=== PATIENT | female | born 1950 | race Caucasian/White ===

== ENCOUNTER → 2022-02-09 | Outpatient (CLI) | payer MEDICARE ==
[2022-02-09 13:50] VITALS: BP 157/66; PULSE 96; TEMP 99.2; BMI 28.5
--- NOTE | 2022-05-05 12:37 | P.HPBAR ---
Bariatric H&P - History & Physicial H&P Date: 02/09/22 History & Physicial: Visit/CC: lap band f/u Patient initial contact: Initial weight: Initial weight in pounds: Height: 5 ft 3 in Initial BMI: Last weight: Current weight: 73.028 kg Current weight in pounds: 161.00 Current BMI: 28.5 [place] body weight (based on NIH guidelines): 52.163 kg Excess body weight loss: The patient is a 71 year-old F who presents for Bariatric Assessment. Patient resents today for LAP-BAND follow-up. She has complaints of GERD. He is requesting a band to be loosened. Past Medical History Past Medical History: Asthma, Coronary Artery Disease (CAD), Hyperlipidemia, Myocardial Infarction ([place]), Osteoarthritis (OA) Last Myocardial Infarction Date:: 2002 History of Any Multi-Drug Resistant Organisms: None Reported Past Surgical History: Bariatric Surgery, Breast Surgery, Section, Cholecystectomy, Heart Catheterization With Stent, Hernia Repair Additional Past Surgical History / Comment(s): lap band 2001, 10 cardiac stents Past Anesthesia/Blood Transfusion Reactions: No Reported Reaction Date of Last Stent Placement:: 2015 Smoking Status: Current every day smoker Surgical - Exam Vital Signs Temp Pulse BP 99.2 F 96 157/66 02/09/22 13:47 02/09/22 13:47 02/09/22 13:47 - General well nourished - Eyes PERRL - ENT normal pinna - Neck no masses - Respiratory normal expansion - Cardiovascular Rhythm: regular - Abdomen Abdomen: soft, non tender Bariatric Assessment & Plan Plan: GERD. Patient's LAP-BAND had 2 mL removed. She currently has 8 mL in the band. She'll follow-up in 4 weeks. Bariatric Checklist Checklist: Plan: Checklist: EGD: 1. Hiatal hernia: 2. H. Pylori: HgbA1c: Vitamin D: Smoking: Primary care physician referral: Psychiatry clearance: Cardiology clearance: Sleep study: Diet journal: VTE risk score: VTE risk level: Rehab needs at discharge:
== END | disposition home or self-care (01) ==
LOC: BARWHC3 13:22
PROVIDERS: ATTEND Surgery
DX: Z46.51 Encounter for fitting and adjustment of gastric lap band (principal); F17.200 Nicotine dependence, unspecified, uncomplicated; I25.10 Atherosclerotic heart disease of native coronary artery without angina pectoris; J45.909 Unspecified asthma, uncomplicated; E78.5 Hyperlipidemia, unspecified; I25.2 Old myocardial infarction; M19.90 Unspecified osteoarthritis, unspecified site; Z98.84 Bariatric surgery status; Z88.8 Allergy status to other drugs, medicaments and biological substances; Z88.1 Allergy status to other antibiotic agents
CPT/HCPCS: 99213

== ENCOUNTER → 2022-03-05 | Day surgery (SDC) | payer MEDICARE ==
[2022-03-04 10:02] VITALS: BMI 28.3
[~2022-03-05] MED LIST: LACTATED RINGERS 1,000 ML IV SCH; LIDOCAINE 1% (10MG/ML) FOR IV START INTRADERMA ONE; PROPOFOL 10 MG/ML 20 ML VIAL IV ONE
[2022-03-05 12:14] VITALS: RESP 16; TEMP 97
--- NOTE | 2022-03-05 12:40 | P.GSHP ---
History of Present Illness H&P Date: 03/05/22 Chief Complaint: GERD 71-year-old female been safe for EGD. She's had issues with GERD. She has appears history of bariatric surgery. Past Medical History Past Medical History: Asthma, Coronary Artery Disease (CAD), Hyperlipidemia, M yocardial Infarction ([place]), Osteoarthritis (OA) Last Myocardial Infarction Date:: 2002 History of Any Multi-Drug Resistant Organisms: None Reported Past Surgical History: Bariatric Surgery, Breast Surgery, Section, Cholecystectomy, Heart Catheterization With Stent, Hernia Repair Additional Past Surgical History / Comment(s): lap band 2001, cardiac stents, COLONOSCOPY/EGD Past Anesthesia/Blood Transfusion Reactions: No Reported Reaction Date of Last Stent Placement:: 2015 Smoking Status: Current every day smoker - Past Family History Brother(s) Family Medical History: Deep Vein Thrombosis (DVT) Sister(s) Family Medical History: Cancer Medications and Allergies Home Medications Medication Instructions Recorded Confirmed Type Albuterol Inhaler [Ventolin Hfa 1 puff INHALATION RT-QID PRN 02/09/22 03/04/22 History Inhaler] Aspirin 325 mg PO DAILY 02/09/22 03/04/22 History Cholecalciferol [Vitamin D3 (10 10 mcg PO DAILY 02/09/22 03/04/22 History Mcg = 400 Iu)] Clopidogrel [Plavix] 75 mg PO DAILY 02/09/22 03/04/22 History Esomeprazole Magnesium [NexIUM] 20 mg PO DAILY PRN 02/09/22 03/04/22 History Ezetimibe [Zetia] 10 mg PO DAILY 02/09/22 03/04/22 History Fluticasone/Vilanterol [Breo 1 inhalation PO Q24HR 02/09/22 03/04/22 History Ellipta 100-25 Mcg Inhaler] Fluvastatin Sodium [Fluvastatin ER] 80 mg PO DAILY 02/09/22 03/04/22 History Folic Acid 1 mg PO DAILY 02/09/22 03/04/22 History Iron 18 mg PO DAILY 02/09/22 03/04/22 History Mometasone Furoate [Nasonex 50 mcg 1 - 2 spray EA NOSTRIL DAILY PRN 02/09/22 03/04/22 History Nasal [place]] Mometasone/Formoterol [Dulera 100 1 puff PO BID PRN 02/09/22 03/04/22 History Mcg-5 Mcg Inhaler] Multivitamins, Thera [Multivitamin 1 tab PO DAILY 02/09/22 03/04/22 History (formulary)] Sertraline [Zoloft] 50 mg PO DAILY 02/09/22 03/04/22 History polyethylene glycoL 3350 [Miralax] 17 gm PO DAILY 02/09/22 03/04/22 History traMADol HCL [Ultram] 50 mg PO TID 02/09/22 03/04/22 History Allergies Allergy/AdvReac Type Severity Reaction Status Date / Time bupropion [From Wellbutrin] Allergy VERY HYPER Verified 03/05/22 11:58 ciprofloxacin [From Cipro] Allergy Rash/Hives Verified 03/05/22 11:58 niacin Allergy Itching Verified 03/05/22 12:00 Surgical - Exam Vital Signs Temp Pulse Resp BP Pulse Ox 97.0 F L 75 16 119/74 98 03/05/22 12:12 03/05/22 12:12 03/05/22 12:12 03/05/22 12:12 03/05/22 12:12 - General well developed, well nourished, no distress - Eyes PERRL - ENT normal pinna - Neck no masses - Respiratory normal expansion - Cardiovascular Rhythm: regular - Abdomen Abdomen: soft, non tender Assessment and Plan Assessment: GERD. We'll perform EGD.
--- NOTE | 2022-03-05 12:48 | P.OP ---
Date of Procedure: 03/05/22 Preoperative Diagnosis: GERD Postoperative Diagnosis: Antral gastritis Proximal stomach inflammation of her band Procedure(s) Performed: EGD Anesthesia: MAC Surgeon: Blake Bauer Pathology: other (Antrum, proximal stomach) Condition: stable Disposition: PACU Description of Procedure: The patient's placed on the endoscopy table in the lateral position. She received IV sedation. The gastroscope placed oropharynx passed in the esophagus and stomach. Scope was then placed through the pylorus. First and second portion of duodenum appeared normal. Scope was then brought back the antrum was mildly inflamed. A biopsies performed. The scope was then retroflexed and was unclear if the patient had a hiatal hernia. There was no evidence of any erosion of the LAP-BAND. The proximal stomach appeared to be inflamed. This area is biopsied. The distal esophagus. Inflamed. The proximal esophagus appeared normal. The scope was withdrawn for patient
[2022-03-05 13:09] VITALS: BP 112/45; PULSE 83
== END | disposition home or self-care (01) ==
LOC: ORWHC2ENDO 10:48
PROVIDERS: ATTEND Surgery
DX: K31.9 Disease of stomach and duodenum, unspecified (principal); K29.70 Gastritis, unspecified, without bleeding; K21.9 Gastro-esophageal reflux disease without esophagitis; K44.9 Diaphragmatic hernia without obstruction or gangrene; J45.909 Unspecified asthma, uncomplicated; I25.10 Atherosclerotic heart disease of native coronary artery without angina pectoris; E78.5 Hyperlipidemia, unspecified; I25.2 Old myocardial infarction; Z98.84 Bariatric surgery status; M19.90 Unspecified osteoarthritis, unspecified site; Z98.891 History of uterine scar from previous surgery; Z98.890 Other specified postprocedural states; Z90.49 Acquired absence of other specified parts of digestive tract; Z95.5 Presence of coronary angioplasty implant and graft; F17.200 Nicotine dependence, unspecified, uncomplicated; Z82.49 Family history of ischemic heart disease and other diseases of the circulatory system; Z79.02 Long term (current) use of antithrombotics/antiplatelets; Z79.82 Long term (current) use of aspirin; Z79.891 Long term (current) use of opiate analgesic; Z79.51 Long term (current) use of inhaled steroids; Z79.899 Other long term (current) drug therapy; Z88.1 Allergy status to other antibiotic agents; Z88.8 Allergy status to other drugs, medicaments and biological substances
CPT/HCPCS: 88305; 43239; J2704

== ENCOUNTER → 2022-03-16 | Outpatient (CLI) | payer MEDICARE ==
--- NOTE | 2022-03-16 12:42 | FL ---
GASTRIC BANDING ESOPHAGRAM CLINICAL HISTORY: Pain Gastric banding esophagram was performed. The patient ingested thin liquid barium without difficulty or delay. Gastric band is noted to be in place. There is no evidence for leak or obstruction. No prolapse is identified. IMPRESSION: Normal-appearing gastric banding device without leak or obstruction.
== END | disposition home or self-care (01) ==
LOC: RADUSWWP 11:01
PROVIDERS: ATTEND Surgery
DX: R13.10 Dysphagia, unspecified (principal)
CPT/HCPCS: 74220

== ENCOUNTER → 2022-03-16 | Outpatient (CLI) | payer MEDICARE ==
[2022-03-16 13:08] VITALS: BP 125/69; PULSE 88; TEMP 98.7; BMI 29.5
--- NOTE | 2022-03-16 13:28 | P.HPBAR ---
Bariatric H&P - History & Physicial H&P Date: 03/16/22 History & Physicial: Visit/CC: lap band fill Patient initial contact: Initial weight: Initial weight in pounds: Height: 5 ft 3 in Initial BMI: Last weight: Current weight: 75.75 kg Current weight in pounds: 167.00 Current BMI: 29.5 [place] body weight (based on NIH guidelines): 52.163 kg Excess body weight loss: The patient is a 71 year-old F who presents for Bariatric Assessment. Patient feels well. Her current weight is 167 pounds. Her periods weight was 161 pounds. She feels hungry and wishes to a fill. Past Medical History Past Medical History: Asthma, Coronary Artery Disease (CAD), Hyperlipidemia, Myocardial Infarction ([place]), Osteoarthritis (OA) Last Myocardial Infarction Date:: 2002 History of Any Multi-Drug Resistant Organisms: None Reported Past Surgical History: Bariatric Surgery, Breast Surgery, Section, Cholecystectomy, Heart Catheterization With Stent, Hernia Repair Additional Past Surgical History / Comment(s): lap band 2001, cardiac stents, COLONOSCOPY/EGD Past Anesthesia/Blood Transfusion Reactions: No Reported Reaction Date of Last Stent Placement:: 2015 Past Psychological History: Anxiety, Depression Smoking Status: Current every day smoker Past Alcohol Use History: None Reported Additional Past Alcohol Use History / Comment(s): SMOKES 1/2 PPD SINCE AGE 16 Past Drug Use History: None Reported - Past Family History Brother(s) Family Medical History: Deep Vein Thrombosis (DVT) Sister(s) Family Medical History: Cancer Surgical - Exam Vital Signs Temp Pulse BP 98.7 F 88 125/69 03/16/22 13:06 03/16/22 13:06 03/16/22 13:06 - General well developed, well nourished, no distress - Eyes PERRL - ENT normal pinna - Neck no masses - Respiratory normal expansion - Cardiovascular Rhythm: regular - Abdomen Abdomen: soft, non tender Bariatric Assessment & Plan Plan: Patient's LAP-BAND was adjusted. She had 1.5 mL added to the band. She'll follow-up in 4 weeks. Bariatric Checklist Checklist: Plan: Checklist: EGD: 1. Hiatal hernia: 2. H. Pylori: HgbA1c: Vitamin D: Smoking: Primary care physician referral: Psychiatry clearance: Cardiology clearance: Sleep study: Diet journal: VTE risk score: VTE risk level: Rehab needs at discharge:
== END ==
LOC: BARWHC3 12:29
PROVIDERS: ATTEND Surgery
DX: Z46.51 Encounter for fitting and adjustment of gastric lap band (principal); I25.10 Atherosclerotic heart disease of native coronary artery without angina pectoris; E78.5 Hyperlipidemia, unspecified; I25.2 Old myocardial infarction; M19.90 Unspecified osteoarthritis, unspecified site; F41.9 Anxiety disorder, unspecified; F32.A Depression, unspecified; F17.200 Nicotine dependence, unspecified, uncomplicated; Z88.1 Allergy status to other antibiotic agents; Z88.9 Allergy status to unspecified drugs, medicaments and biological substances; Z88.8 Allergy status to other drugs, medicaments and biological substances
CPT/HCPCS: 99212

== ENCOUNTER → 2022-04-27 | Outpatient (CLI) | payer MEDICARE ==
[2022-04-27 14:28] VITALS: BP 144/78; PULSE 81; TEMP 97.7; BMI 30.2
--- NOTE | 2022-04-28 16:11 | P.HPBAR ---
Bariatric H&P - History & Physicial H&P Date: 04/28/22 History & Physicial: Visit/CC: lap band follow up Patient initial contact: Initial weight: Initial weight in pounds: Height: 5 ft 3 in Initial BMI: Last weight: Current weight: 77.564 kg Current weight in pounds: 171.00 Current BMI: 30.2 [place] body weight (based on NIH guidelines): 52.163 kg Excess body weight loss: The patient is a 71 year-old F who presents for Bariatric Assessment. Patient presents today for LAP-BAND follow-up. She's requesting a fill her band. Past Medical History Past Medical History: Asthma, Coronary Artery Disease (CAD), Hyperlipidemia, Myocardial Infarction ([place]), Osteoarthritis (OA) Last Myocardial Infarction Date:: 2002 History of Any Multi-Drug Resistant Organisms: None Reported Past Surgical History: Bariatric Surgery, Breast Surgery, Section, Cholecystectomy, Heart Catheterization With Stent, Hernia Repair Additional Past Surgical History / Comment(s): lap band 2001, cardiac stents, COLONOSCOPY/EGD Past Anesthesia/Blood Transfusion Reactions: No Reported Reaction Date of Last Stent Placement:: 2015 Past Psychological History: Anxiety, Depression Smoking Status: Current every day smoker Past Alcohol Use History: None Reported Additional Past Alcohol Use History / Comment(s): SMOKES 1/2 PPD SINCE AGE 16 Past Drug Use History: None Reported - Past Family History Brother(s) Family Medical History: Deep Vein Thrombosis (DVT) Sister(s) Family Medical History: Cancer Surgical - Exam Vital Signs Temp Pulse BP 97.7 F 81 144/78 04/27/22 14:26 04/27/22 14:26 04/27/22 14:26 - General well developed, well nourished, no distress - Eyes PERRL - ENT normal pinna - Neck no masses - Respiratory normal expansion - Abdomen Abdomen: soft, non tender Bariatric Assessment & Plan Plan: Patient LAP-BAND was adjusted. She had 0.5 mL added to the band. She currently has 2 mL in the band. She'll follow-up in 4 weeks. Bariatric Checklist Checklist: Plan: Checklist: EGD: 1. Hiatal hernia: 2. H. Pylori: HgbA1c: Vitamin D: Smoking: Primary care physician referral: Psychiatry clearance: Cardiology clearance: Sleep study: Diet journal: VTE risk score: VTE risk level: Rehab needs at discharge:
== END ==
LOC: BARWHC3 13:24
PROVIDERS: ATTEND Surgery
DX: Z46.51 Encounter for fitting and adjustment of gastric lap band (principal); J45.909 Unspecified asthma, uncomplicated; I25.10 Atherosclerotic heart disease of native coronary artery without angina pectoris; E78.5 Hyperlipidemia, unspecified; I25.2 Old myocardial infarction; M19.90 Unspecified osteoarthritis, unspecified site; Z98.84 Bariatric surgery status; F41.9 Anxiety disorder, unspecified; F32.A Depression, unspecified; F17.210 Nicotine dependence, cigarettes, uncomplicated; Z88.8 Allergy status to other drugs, medicaments and biological substances; Z88.1 Allergy status to other antibiotic agents
CPT/HCPCS: 99212